=== PATIENT | female | born 1940 | race Caucasian/White ===

== ENCOUNTER 2017-03-22 10:12 | Inpatient (IN) ==
[2017-04-03] MEDS ORDERED: DOCUSATE SODIUM 100 MG CAPSULE PO PRN ×2 (10:20→10:51)
[2017-04-03] MEDS ORDERED: HALOPERIDOL 0.5 MG TABLET PO PRN (10:21)
[2017-04-03] MEDS ORDERED: HALOPERIDOL 5 MG/ML INJECTION IM PRN (10:21)
[2017-04-03] MEDS ORDERED: LORazepam 0.5 MG TABLET PO PRN (10:22)
[2017-04-04] MEDS ORDERED: LORazepam 0.5 MG TABLET PO PRN (05:00)
[2017-04-04] MEDS ORDERED: HALOPERIDOL 5 MG/ML INJECTION IM PRN (05:00)
[2017-04-04] MEDS ORDERED: DOCUSATE SODIUM 100 MG CAPSULE PO PRN (05:00)
[2017-04-04] MEDS ORDERED: HALOPERIDOL 0.5 MG TABLET PO PRN (05:00)
[2017-04-04] MEDS ORDERED: OLANZapine ODT 5 MG TABLET PO SCH (17:00)
--- NOTE | 2017-04-05 16:28 | Progress Note ---
Subjective: Patient is seen today in follow up. While watching television. She is alert, pleasant. States that she would like to be discharged. Denies having pain or shortness of breath. No GI complaints. Nursing staff reports possible discharge Saturday Objective Vital signs: Temp Pulse Resp BP Pulse Ox 98.2 F 87 16 144/79 H 94 04/05/17 08:00 04/05/17 08:00 04/05/17 08:00 04/05/17 08:00 04/05/17 08:00 Weight: 63.5 kg - Constitutional Present: no acute distress - Routine HEENT Exam Eye: Present: EOMI, PERRL - Routine Respiratory Exam Present: CTA bilaterally - Routine Cardiovascular Exam Present: RRR, S1, S2 - Routine Abdominal Exam Present: soft, normoactive bowel sounds - Routine Extremities Exam Present: full ROM - Routine Back/Spine/Pelvis Exam Back/Spine: Present: full ROM - Routine Neurological Exam Present: alert, CN II-XII intact - Routine Psychiatric Exam Present: normal affect Assessment and Plan (1) Schizophrenia Current visit: Yes Status: Acute (2) Neurocognitive disorder Current visit: Yes Status: Acute (3) Hypertension Current visit: Yes Status: Chronic (4) Vitamin B12 deficiency Current visit: Yes Status: Chronic Assessment and Plan: 04/05 Overall patient is doing well medically. Vital signs have been well controlled Continue to encourage patient to participate in unit activities and provide a safe environment. Discussed case with [facility] staff. Planning for discharge Saturday Sepsis Assessment - Evaluation Sepsis screening result: No Definite Risk - Focused Exam Vital Signs Temp Pulse Resp BP Pulse Ox 04/05/17 08:00 98.2 F 87 16 144/79 H 94 Capillary refill: < 2-3 Seconds Hospital Course Summary Disclaimer: The visit summary below is not to be considered part of the above Progress Note.
[2017-04-05] MEDS: OLANZapine ODT 5 MG TABLET PO SCH (17:13)
[2017-04-06] MEDS: OLANZapine ODT 5 MG TABLET PO SCH (17:19)
--- NOTE | 2017-04-07 09:12 | Progress Note ---
Subjective: Beatriz is seen today in follow up for her schizoaffective disorder and history of hypertension. She is seen while sitting in the day room, having just finished breakfast. She states that she is doing well and slept well last night. She has no complaints including no chest pain, shortness of breath, abdominal pain, nausea, vomiting or dysuria. Her appetite is good and her bowels are moving. She is eager for discharge and is adamant that she only be discharged home. Nursing reports that she has been doing well and is scheduled for discharge tomorrow, 04/08/17 to a senior care in [place]. On exam, she is sitting in the day room, watching the ducks out the window. She is alert, orientated, cooperative and pleasant on exam. Cardiac exam reveals regular rate and rhythm and lungs are clear to auscultation bilaterally. Abdomen is soft, nontender with active bowel sounds. 1-2+ edema noted to bilateral lower extremities. N/V intact. Objective Vital signs: Temp Pulse Resp BP Pulse Ox 98.4 F 60 18 143/85 H 96 04/07/17 07:17 04/07/17 07:17 04/07/17 07:33 04/07/17 07:33 04/07/17 07:33 Rhythm: Normal Sinus Rhythm Weight: 63.5 kg - Constitutional Present: no acute distress, cooperative - Routine HEENT Exam Head: Present: normocephalic, atraumatic Eye: Absent: scleral injection ENT: Present: mucous membranes moist - Routine Respiratory Exam Absent: accessory muscle use, respiratory distress, stridor, wheezes, crackles - Routine Cardiovascular Exam Present: RRR, S1, S2 - Routine Abdominal Exam Present: soft, normoactive bowel sounds, non tender. Absent: tenderness - Routine Extremities Exam Present: edema (2+ bilateral lower extremities), non tender, full ROM, normal capillary refill - Routine Back/Spine/Pelvis Exam Back/Spine: Present: full ROM - Routine Musculoskeletal Exam Musculoskeletal: normal strength - Routine Skin Exam Present: intact, dry. Absent: rash - Routine Neurological Exam Present: alert, oriented X3, moving all extremities, normal tone - Routine Lymphatic Exam Lymphatic: Absent: lymphedema - Routine Psychiatric Exam Present: cooperative Assessment and Plan (1) Schizophrenia Current visit: Yes Status: Acute (2) Neurocognitive disorder Current visit: Yes Status: Acute (3) Hypertension Current visit: Yes Status: Chronic (4) Vitamin B12 deficiency Current visit: Yes Status: Chronic Assessment and Plan: Overall, Beatriz is doing well and medically stable. She is scheduled for discharge to a senior care in [place] tomorrow, 04/08/17. Continue psychiatric care per Dr. Hugo and team. Blood pressure controlled. Continue to monitor closely. 2+ edema noted to bilateral lower extremities. Encourage elevation of legs throughout day for edema and monitor closely. Continue to encourage participation in floor activities and provide safe and supportive environment. Upon discharge, patient's care will be returned to her PCP. Sepsis Assessment - Evaluation Sepsis screening result: No Definite Risk - Focused Exam Vital Signs Temp Pulse Resp BP Pulse Ox 04/07/17 07:33 18 143/85 H 96 04/07/17 07:17 98.4 F 60 18 143/85 H 96 Respiratory exam: Present: CTA bilaterally Cardiovascular exam: Present: RRR, S1, S2 Capillary refill: < 2-3 Seconds Hospital Course Summary Disclaimer: The visit summary below is not to be considered part of the above Progress Note.
--- NOTE | 2017-04-07 11:11 | Neuropsych Progress Note ---
[facility] Subjective Date: 04/07/17 - Sujective/Severity of Illness Medications: Docusate Sodium (Colace) 100 mg PO DAILY PRN Haloperidol (Haldol) 0.5 mg PO Q6H PRN PRN Reason: Extreme agitation Haloperidol Lactate (Haldol) 0.5 mg IM Q6H PRN PRN Reason: EXTREME AGITATION Lorazepam (Ativan) 0.5 mg PO Q6H PRN PRN Reason: Extreme agitation Lorazepam (Ativan Inj) 0.5 mg IM Q6H PRN PRN Reason: Extreme agitation Olanzapine (Zyprexa Zydis) 20 mg PO 1700 [facility] Last Admin: 04/06/17 17:19 Dose: 20 mg Subjective: Pt seen and chart examined. Nursing reports pt is doing well. Sleeping well and has a good appetite. No behaviors noted. On face to face the pt is pleasant and cooperative. She has poor insight and some paranoia but it appears improved. Denies S/i. Tolerating meds. Start Time: 10:00 Stop Time: 10:15 Mental Status Exam Vitals: Last Vital Signs Temp 98.4 F 04/07/17 07:17 Pulse 60 04/07/17 07:17 Resp 18 04/07/17 07:33 BP 143/85 H 04/07/17 07:33 Pulse Ox 96 04/07/17 07:33 Height: 1.65 m Weight: 63.5 kg - Mental Status Exam Muscle Strength/Tone: Normal Dressing: Casual Grooming: Good Attitude: Guarded Motor Activity: Normal Eye Contact: Fair Speech: Slowed Volume: Normal Rhythm: Appropriate Rhythm Orientation: Oriented X4 Mood: Euthymic, Irritable Rate of Thoughts: Pressured Thought Organization: Tangential Associations: Intact Abstract Reasoning: Poor abstract reasoning Thought Content: Delusions Perception/Psychotic: Hx psychosis, not current Language: Naming Intact Fund of Knowledge: Poor fund of knowledge Memory: Grossly Intact Suicidal Ideation: None Homicidal Ideation: None Insight: Poor Judgement: Poor Impulse Control: Poor Assessment and Plan (1) Schizophrenia Current visit: Yes Status: Acute Will D/C to [place] tomorrow
--- NOTE | 2017-04-07 11:19 | Discharge Summary ---
Discharge Plan - Med Rec/Dispo Referrals/Follow Up: Smiley Xavier MD [Physician Nonstaff] - 2 Weeks (Patient will be seen on rounds at the facility for Hosp. follow-up. . Patient refuses Mental Health follow-up.) Additional Instructions: IN CASE OF PSYCHIATRIC EMERGENCY, CONTACT [facility] STAFF AT [phone] ( available 24 hrs daily). Prescriptions: New Docusate Sodium [Colace] 100 mg PO DAILY PRN cap PRN Reason: Constipation Haloperidol [Haldol] 0.5 mg PO Q6H PRN PRN Reason: Extreme Agitation LORazepam [Ativan] 0.5 mg PO Q6H PRN #120 PRN Reason: Extreme Agitation OLANZapine ODT [ZyPREXA Zydis] 20 mg PO 1700 - Disposition [address] [facility] Home/Facility
[2017-04-07] MEDS: OLANZapine ODT 5 MG TABLET PO SCH (17:51)
--- NOTE | 2017-04-08 09:35 | Extended Care Facility Orders ---
Admission Orders Admit to:: I[facility] Allergies/Adverse Reactions: Allergies No Known Allergies Allergy (Verified 04/03/17 14:11) Admitting Diagnosis: Schizoaffective Disorder Admitting Physician: Rosina Hugo MD Attending Physician: Rosina Hugo MD Code Status: Full Code Anticiapted Length of Stay: 30 days or less Rehab Potential: good Rehab Prognosis: good Diet: Regular Diet Wound/Incision Care: N/A May use Facility Protocol or Standing Orders: Yes May have flu vaccine: Yes Evaluations/Treatment: as needed Penitentiary Certification: I certify that SNF services are required to be given on an Inpatient basis because of the patient's need for usp care on a continuing basis for the condition(s) for which she received inpatient hospital services prior to her transfer to the SNF. SNF inpatient care is necessary for the following reasons: Indication for Penitentiary: Not Applicable - Additional Information In Event of Arrest: Start CPR,call 911,send patient to the ER Resident is Aware of Diagnosis: Yes Referrals: Smiley Xavier MD [Physician Nonstaff] - 2 Weeks (Patient will be seen on rounds at the facility for Hosp. follow-up. [phone]. Patient refuses Mental Health follow-up.)
[2017-04-08] MEDS ORDERED: LORazepam INTENSOL 1mg/0.5ml ORAL LIQUID PO SCH (10:00)
--- NOTE | 2017-04-08 11:31 | Neuropsych Progress Note ---
[facility] Subjective Date: 04/06/17 - Sujective/Severity of Illness Medications: Docusate Sodium (Colace) 100 mg PO DAILY PRN Haloperidol (Haldol) 0.5 mg PO Q6H PRN PRN Reason: Extreme agitation Haloperidol Lactate (Haldol) 0.5 mg IM Q6H PRN PRN Reason: EXTREME AGITATION Lorazepam (Ativan) 0.5 mg PO Q6H PRN PRN Reason: Extreme agitation Lorazepam (Ativan Inj) 0.5 mg IM Q6H PRN PRN Reason: Extreme agitation Olanzapine (Zyprexa Zydis) 20 mg PO 1700 [facility] Last Admin: 04/05/17 17:13 Dose: 20 mg Subjective: Pt seen and chart examined. Nursing reports pt has done well on the unit. Sleeping well and has a good appetite. No behaviors noted. On face to face the pt states she is doing well. She is slightly irritable and states she just wants to go home. She denies any S/I or psychosis. Tolerating meds Start Time: 11:00 Stop Time: 11:15 Mental Status Exam Vitals: Last Vital Signs Temp 98.5 F 04/06/17 07:45 Pulse 67 04/06/17 07:45 Resp 18 04/06/17 07:45 BP 143/83 H 04/06/17 07:45 Pulse Ox 96 04/06/17 07:45 Height: 1.65 m Weight: 63.5 kg - Mental Status Exam Muscle Strength/Tone: Normal Dressing: Casual Grooming: Good Attitude: Guarded Motor Activity: Normal Eye Contact: Fair Speech: Slowed Volume: Normal Rhythm: Appropriate Rhythm Orientation: Oriented X4 Mood: Euthymic, Irritable Rate of Thoughts: Pressured Thought Organization: Tangential Associations: Intact Abstract Reasoning: Poor abstract reasoning Thought Content: Delusions Perception/Psychotic: Hx psychosis, not current Language: Naming Intact Fund of Knowledge: Poor fund of knowledge Memory: Grossly Intact Suicidal Ideation: None Homicidal Ideation: None Insight: Poor Judgement: Poor Impulse Control: Poor Assessment and Plan (1) Schizophrenia Current visit: Yes Status: Acute Continue current care
--- NOTE | 2017-04-08 12:57 | Neuropsych Progress Note ---
[facility] Subjective Date: 04/05/17 - Sujective/Severity of Illness Medications: Docusate Sodium (Colace) 100 mg PO DAILY PRN Haloperidol (Haldol) 0.5 mg PO Q6H PRN PRN Reason: Extreme agitation Haloperidol Lactate (Haldol) 0.5 mg IM Q6H PRN PRN Reason: EXTREME AGITATION Lorazepam (Ativan) 0.5 mg PO Q6H PRN PRN Reason: Extreme agitation Lorazepam (Ativan Inj) 0.5 mg IM Q6H PRN PRN Reason: Extreme agitation Olanzapine (Zyprexa Zydis) 20 mg PO 1700 [facility]O Subjective: Pt seen and chart examined. Nursing reports pt is doing well on the unit. Sleeping well and has a good appetite. Continuues to refuse labs. On face to face pt states she is doing well. She reports her mood is stable and she denies any S/I or psychosis. Tolerating meds. Pt was told she is going to a NH on Saturday and pt became delusional. She states she believes her neighbors and people in the hospital want her home and this is why she has to go to a NH Start Time: 16:30 Stop Time: 16:45 Mental Status Exam Vitals: Last Vital Signs Temp 98.9 F 04/05/17 16:00 Pulse 70 04/05/17 16:00 Resp 16 04/05/17 16:00 BP 125/78 04/05/17 16:00 Pulse Ox 98 04/05/17 16:00 Height: 1.65 m Weight: 63.5 kg - Mental Status Exam Muscle Strength/Tone: Normal Dressing: Casual Grooming: Good Attitude: Guarded Motor Activity: Normal Eye Contact: Fair Speech: Slowed Volume: Normal Rhythm: Appropriate Rhythm Orientation: Oriented X4 Mood: Euthymic, Irritable Rate of Thoughts: Pressured Thought Organization: Tangential Associations: Intact Abstract Reasoning: Poor abstract reasoning Thought Content: Delusions Perception/Psychotic: Hx psychosis, not current Language: Naming Intact Fund of Knowledge: Poor fund of knowledge Memory: Grossly Intact Suicidal Ideation: None Homicidal Ideation: None Insight: Poor Judgement: Poor Impulse Control: Poor Assessment and Plan (1) Schizophrenia Current visit: Yes Status: Acute Increase Zyprexa to 20mg PO QHS
--- NOTE | 2017-04-09 11:51 | Neuropsych Progress Note ---
[facility] Subjective Date: 04/04/17 - Sujective/Severity of Illness Medications: Docusate Sodium (Colace) 100 mg PO DAILY PRN Haloperidol (Haldol) 0.5 mg PO Q6H PRN PRN Reason: Extreme agitation Haloperidol Lactate (Haldol) 0.5 mg IM Q6H PRN PRN Reason: EXTREME AGITATION Lorazepam (Ativan) 0.5 mg PO Q6H PRN PRN Reason: Extreme agitation Lorazepam (Ativan Inj) 0.5 mg IM Q6H PRN PRN Reason: Extreme agitation Olanzapine (Zyprexa Zydis) 15 mg PO 1700 [facility] Last Admin: 04/04/17 16:55 Dose: 15 mg Subjective: Pt seen and chart examined. Nursing reports pt is doing well. Sleeping well and has a good appetite. Mood stable. On face to face the pt remains tangential with poor insight. Pt states she does not believe she is going to a NH even though this was explained to her. She reports tolerating her medication well. Start Time: 18:00 Stop Time: 18:15 Mental Status Exam Vitals: Last Vital Signs Temp 98.6 F 04/04/17 16:00 Pulse 79 04/04/17 16:00 Resp 20 04/04/17 16:00 BP 154/83 H 04/04/17 16:00 Pulse Ox 96 04/04/17 16:00 Height: 1.65 m Weight: 63.5 kg - Mental Status Exam Muscle Strength/Tone: Normal Dressing: Casual Grooming: Good Attitude: Guarded Motor Activity: Normal Eye Contact: Fair Speech: Slowed Volume: Normal Rhythm: Appropriate Rhythm Orientation: Oriented X4 Mood: Euthymic, Irritable Rate of Thoughts: Pressured Thought Organization: Tangential Associations: Intact Abstract Reasoning: Poor abstract reasoning Thought Content: Delusions Perception/Psychotic: Hx psychosis, not current Language: Naming Intact Fund of Knowledge: Poor fund of knowledge Memory: Grossly Intact Suicidal Ideation: None Homicidal Ideation: None Insight: Poor Judgement: Poor Impulse Control: Poor Assessment and Plan (1) Schizophrenia Current visit: Yes Status: Acute Continue current care
== END 2017-04-08 11:25 | DRG 885 ==
LOC: GEN 11:09
PROVIDERS: ADMIT Psychiatry & Neurology Psychiatry; ATTEND Psychiatry & Neurology Psychiatry